=== PATIENT | female | born 1985 | race Asian ===

== ENCOUNTER 2018-01-26 00:45 | Inpatient (IN) | payer SELFPAY ==
[~2018-01-26] VITALS: Ht 158 cm; Wt 63.5 kg
[2018-01-26] MEDS ORDERED: OXYTOCIN/0.9 % SODIUM CHLORIDE 1,000 ML IV SCH (01:43)
[2018-01-26] MEDS ORDERED: NALBUPHINE HCL 10 MG/ML AMP IVP PRN (01:45)
[2018-01-26] MEDS ORDERED: TERBUTALINE SULFATE 1 MG/ML VIAL SUBCUT ONE (01:45)
[2018-01-26] MEDS ORDERED: MISOPROSTOL 100 MCG TABLET (CYTOTEC) PO PRN (01:45)
[2018-01-26] MEDS ORDERED: NALBUPHINE HCL 10 MG/ML AMP IM PRN (01:45)
[2018-01-26] MEDS ORDERED: MISOPROSTOL 100 MCG TABLET (CYTOTEC) ONE (02:02)
[2018-01-26 02:33] LABS: BASOPHILS % (AUTO) 0.3 % (0.0-2.0); EOSINOPHILS # (AUTO) 0.1 K/uL (0.0-0.4); EOSINOPHILS % (AUTO) 0.8 % (0.0-4.0); HEMATOCRIT 32.7 % (36-48); HEMOGLOBIN 11.1 g/dL (12.0-16.0); LYMPHOCYTES # (AUTO) 1.9 K/uL (1.0-5.5); LYMPHOCYTES % (AUTO) 20.6 % (20.5-51.5); MEAN CORPUSCULAR HEMOGLOBIN 29 pg (27-31); MEAN CORPUSCULAR HGB CONC 34 % (32-36); MEAN CORPUSCULAR VOLUME 85 fL (79.0-98.0); MONOCYTES # (AUTO) 0.7 K/uL (0.0-1.0); MONOCYTES % (AUTO) 7.8 % (1.7-9.3); NEUTROPHILS # (AUTO) 6.7 K/uL (1.8-7.7); NEUTROPHILS % (AUTO) 70.5 % (40.0-70.0); PLATELET COUNT (AUTO) 239 K/uL (130-430); RED BLOOD CELL COUNT(AUTO) 3.84 MIL/uL (4.2-6.2); RED CELL DISTRIBUTION WIDTH 13.3 % (9.0-15.0); WHITE BLOOD COUNT (AUTO) 9.4 K/uL (4.8-10.8)
[2018-01-26] MEDS: LR 1,000 ML IV SCH ×4 (02:45→12:00)
[2018-01-26 04:12] VITALS: BP_SYST 92
[2018-01-26] MEDS ORDERED: ROPIVACAINE 0.2% 100 ML ONE (10:15)
[2018-01-26] MEDS ORDERED: fentaNYL CITRATE/PF 100 MCG/2 ML AMP ONE (10:15)
[2018-01-26] MEDS ORDERED: METHYLERGONOVINE MALEATE 0.2 MG/ML AMP ONE (15:11)
[2018-01-26] MEDS ORDERED: OXYTOCIN/0.9 % SODIUM CHLORIDE 1,000 ML IV ONE (15:38)
[2018-01-26] MEDS ORDERED: DERMOPLAST SPRAY TP PRN (15:45)
[2018-01-26] MEDS ORDERED: LANOLIN 7 GM OINT. TP PRN (15:45)
[2018-01-26] MEDS ORDERED: OXYCODONE/ACETAMINOPHEN 5-325 TABLET PO PRN ×2 (15:45)
[2018-01-26] MEDS ORDERED: DOCUSATE SODIUM 100 MG CAPSULE PO PRN (15:45)
[2018-01-26] MEDS ORDERED: HYDROCORTISONE 0.5%, 28.35 GM TOPICAL CREAM TP PRN (15:45)
[2018-01-26] MEDS ORDERED: ANUSOL 1 EA SUPP.RECT (PREPARATION H) RC PRN (15:45)
[2018-01-26] MEDS ORDERED: SENNOSIDES/DOCUSATE SODIUM 1 TAB TABLET(SENOKOT-S) PO PRN (15:45)
[2018-01-26] MEDS ORDERED: WITCH HAZEL LEAF 1 MED.PAD MED.PAD TP PRN (15:45)
[2018-01-26] MEDS ORDERED: METHYLERGONOVINE MALEATE 0.2 MG TABLET PO PRN (15:45)
[2018-01-26] MEDS: IBUPROFEN 600 MG TABLET PO SCH (18:13)
[2018-01-27] MEDS: IBUPROFEN 600 MG TABLET PO SCH ×4 (00:33→17:39)
[2018-01-27 07:03] LABS: HEMATOCRIT 28.5 % (36-48); HEMOGLOBIN 9.6 g/dL (12.0-16.0)
[2018-01-27] MEDS ORDERED: BACITRACIN 1 GM OINT TP ONE (07:51)
[2018-01-27] MEDS ORDERED: LIDOCAINE PF 1%, 20 MG/2 ML AMP ONE (07:51)
[2018-01-28] MEDS: IBUPROFEN 600 MG TABLET PO SCH ×2 (06:00)
== END 2018-01-28 10:00 | disposition home or self-care (01) | DRG 775 ==
LOC: SPU 00:45
PROVIDERS: ADMIT Obstetrics & Gynecology; ATTEND Obstetrics & Gynecology
PROC: 10E0XZZ Delivery of Products of Conception, External Approach (ICD-10-PCS; principal; 2018-01-26)
PROC: 3E0P7VZ Introduction of Hormone into Female Reproductive, Via Natural or Artificial Opening (ICD-10-PCS; 2018-01-26)
PROC: 0UQGXZZ Repair Vagina, External Approach (ICD-10-PCS; 2018-01-26)
PROC: 3E0R3BZ Introduction of Anesthetic Agent into Spinal Canal, Percutaneous Approach (ICD-10-PCS; 2018-01-26)
PROC: 00HU33Z Insertion of Infusion Device into Spinal Canal, Percutaneous Approach (ICD-10-PCS; 2018-01-26)
DX: O77.0 Labor and delivery complicated by meconium in amniotic fluid (principal); O71.4 Obstetric high vaginal laceration alone; Z3A.40 40 weeks gestation of pregnancy; Z37.0 Single live birth
CPT/HCPCS: 36415; 85018-TC; 85025; 86886; 86900; 86901; 94760; J2001; J2210; J2590; J2795; J3010